=== PATIENT | male | born 1990 | race Caucasian/White ===

== ENCOUNTER 2019-04-04 15:56 | Emergency (ER) | payer OTHER ==
[2019-04-04] MEDS: IBUPROFEN 800 MG TAB PO (16:59)
== END 2019-04-04 17:16 | disposition home or self-care (01) ==
LOC: FTE 15:56
DX: S92.252A Displaced fracture of navicular [scaphoid] of left foot, initial encounter for closed fracture (principal); X58.XXXA Exposure to other specified factors, initial encounter; Y92.9 Unspecified place or not applicable
CPT/HCPCS: 29515; 73630-LT; 99283-25